=== PATIENT | female | born 1985 | race Caucasian/White ===

== ENCOUNTER 2021-10-31 13:09 | Outpatient (CLI) | payer OTHER | END 2021-10-31 14:46 | disposition home or self-care (01) | LOC: NST 13:09 | PROVIDERS: ATTEND Obstetrics & Gynecology | DX: Z34.83 Encounter for supervision of other normal pregnancy, third trimester (principal) ==

== ENCOUNTER 2022-01-04 13:41 | Outpatient (CLI) | payer OTHER | END 2022-01-04 15:41 | disposition home or self-care (01) | LOC: NST 13:41 | PROVIDERS: ATTEND Obstetrics & Gynecology Gynecology | DX: Z34.83 Encounter for supervision of other normal pregnancy, third trimester (principal) ==

== ENCOUNTER 2022-01-18 05:06 | Inpatient (IN) | payer OTHER ==
[~2022-01-18] VITALS: Ht 160 cm; Wt 81.6 kg
[2022-01-18] MEDS ORDERED: PRENATAL TABLE1 EAC3 PO (05:52)
== END 2022-01-20 13:20 | disposition home or self-care (01) | DRG 807 ==
LOC: LDR 05:06 → OB/GYN 05:06 → LDR 06:20 → OB/GYN 18:12 → SURH 01-24 16:17
PROVIDERS: ADMIT Obstetrics & Gynecology; ATTEND Obstetrics & Gynecology
PROC: 10E0XZZ Delivery of Products of Conception, External Approach (ICD-10-PCS; principal; 2022-01-18)
PROC: 0UQG7ZZ Repair Vagina, Via Natural or Artificial Opening (ICD-10-PCS; 2022-01-18)
PROC: 4A1HXCZ Monitoring of Products of Conception, Cardiac Rate, External Approach (ICD-10-PCS; 2022-01-18)
DX: O71.4 Obstetric high vaginal laceration alone (principal); Z37.0 Single live birth; Z3A.39 39 weeks gestation of pregnancy; Z20.822 Contact with and (suspected) exposure to COVID-19